=== PATIENT | male | born 1990 | race Caucasian/White ===

== ENCOUNTER → 2020-11-22 | Outpatient (CLI) | payer OTHER ==
[~2020-11-22] MED LIST: PROAIR HFA8.5 GM INH
== END ==
LOC: KOH-I 14:30
DX: M54.5 Low back pain (principal); M47.816 Spondylosis without myelopathy or radiculopathy, lumbar region; M47.817 Spondylosis without myelopathy or radiculopathy, lumbosacral region; M48.061 Spinal stenosis, lumbar region without neurogenic claudication; M48.07 Spinal stenosis, lumbosacral region; M51.26 Other intervertebral disc displacement, lumbar region; M51.27 Other intervertebral disc displacement, lumbosacral region
CPT/HCPCS: 72148

== ENCOUNTER 2021-01-30 02:50 | Emergency (ER) | payer OTHER ==
[2021-01-30] MEDS ORDERED: PROAIR HFA8.5 GM INH (05:07)
== END 2021-01-30 05:17 | disposition home or self-care (01) ==
LOC: ER1 02:50
DX: J02.9 Acute pharyngitis, unspecified (principal); J45.909 Unspecified asthma, uncomplicated; Z20.822 Contact with and (suspected) exposure to COVID-19; Z88.0 Allergy status to penicillin
CPT/HCPCS: 0240U; 71046; 87081; 87880; 93005; 96372; 99285; J1100

== ENCOUNTER 2021-10-02 00:45 | Emergency (ER) | payer OTHER ==
[2021-10-02] MEDS ORDERED: TAMIFLU75 MG PO (02:55)
[2021-10-02] MEDS ORDERED: PROVENTIL HFA6.7 GM INH (02:55)
[2021-10-02] MEDS ORDERED: LODINE CAP 300300 MG PO (02:55)
[2021-10-02] MEDS ORDERED: BENZONATATE100 MG PO (03:05)
== END 2021-10-02 03:26 | disposition home or self-care (01) ==
LOC: ER1 00:45
DX: J10.1 Influenza due to other identified influenza virus with other respiratory manifestations (principal); Z88.0 Allergy status to penicillin; Z20.822 Contact with and (suspected) exposure to COVID-19; Z88.8 Allergy status to other drugs, medicaments and biological substances
CPT/HCPCS: 0240U; 71045; 87081; 87880; 96372; 99283; J1885